=== PATIENT | male | born 1960 | race Caucasian/White ===

== ENCOUNTER 2016-07-12 20:20 | Day surgery (SDC) | payer OTHER ==
[~2016-07-12] VITALS: Ht 172.7 cm; Wt 102.1 kg
[~2016-07-12 20:20] MED LIST: FLOMAX0.4 MG PO; PERCOCET 5/31 TABLET PO; ZOFRAN4 MG PO
[2016-07-12 20:46] VITALS: BP 142/106
[2016-07-12] MEDS ORDERED: ABILIFY10 MG PO (23:21)
[2016-07-12] MEDS ORDERED: ZOLPIDEM TARTRAT5 MG PO (23:22)
[2016-07-12] MEDS ORDERED: MOTRIN800 MG PO (23:23)
[2016-07-12] MEDS ORDERED: ATORVASTATIN CA10 MG PO (23:23)
[2016-07-12 23:33] LABS: EOSINOPHIL (%) 1.5 % (0-5); EOSINOPHIL COUNT 0.2 K/uL (0-0.3); HEMATOCRIT 39.4 % (38.0-50.0); IMMATURE GRANULOCYTE (%) 0.2 % (0.0-0.7); IMMATURE GRANULOCYTE COUNT 0.2 K/uL; LYMPHOCYTE COUNT 2.1 K/uL (1.0-2.8); MCH 30.4 PG (29.0-34.0); MCV 89.3 FL (86-99); MEAN PLAT.VOLUME 8.7 uM^3 (9.0-12.4); MONOCYTE (%) 9.1 % (3-12); MONOCYTE COUNT 0.9 K/uL (0-0.8); NEUTROPHIL (%) 67.5 % (45-76); NEUTROPHIL COUNT 6.7 K/uL (1.8-6.4); PLATELET COUNT 230 K/uL (156-360); RBC DIS.WIDTH-CV 12.8 % (11.8-14.6); RBC DIS.WIDTH-SD 41.2 % (39-53); RED BLOOD COUNT 4.41 M/uL (4.00-5.50); WHITE BLOOD COUNT 9.9 K/uL (4.1-10.2)
[2016-07-12 23:42] LABS: CHLORIDE 110 mEq/L (99-109); PROTHROMBIN TIME 10.5 (9.2-11.2); PTT 25.4 (25-32); SODIUM 141 mEq/L (136-147)
[2016-07-12 23:45] LABS: GLUCOSE 100 mg/dL (70-99)
[2016-07-12 23:46] LABS: ANION GAP 8 MEQ/L (2-14); TOTAL BILIRUBIN 0.3 mg/dL (0.0-1.0)
[2016-07-12 23:48] LABS: ALKALINE PHOSPHATASE 63 IU/L (3-129); GFR ESTIMATE (CALCULATED) > 59 mL/min/
[2016-07-12 23:49] LABS: UREA NITROGEN (BUN) 18 mg/dL (9-23)
== END 2016-07-13 01:40 | disposition home or self-care (01) ==
LOC: EME 20:20 → SDC 23:56 → EME 23:56 → SDC 07-13 01:40
PROVIDERS: Emergency Medicine
DX: T18.128A Food in esophagus causing other injury, initial encounter (principal); R13.10 Dysphagia, unspecified; K21.9 Gastro-esophageal reflux disease without esophagitis; Z87.19 Personal history of other diseases of the digestive system; Z87.891 Personal history of nicotine dependence
CPT/HCPCS: 70360; 71020; 80053; 85025; 85610; 85730; 88305; 99281; 99285; J0330; J1100; J2250; J2405; J3010; J7030

== ENCOUNTER → 2016-09-08 | Outpatient (CLI) | payer OTHER ==
[~2016-09-08] VITALS: Ht 172.7 cm; Wt 99.8 kg
[~2016-09-08] MED LIST changes: +ABILIFY10 MG PO; +ATORVASTATIN CA10 MG PO; +MOTRIN800 MG PO; +ZOLPIDEM TARTRAT5 MG PO
== END | disposition home or self-care (01) ==
LOC: AMB 08-11 09:00
DX: K20.0 Eosinophilic esophagitis (principal); R13.10 Dysphagia, unspecified; K44.9 Diaphragmatic hernia without obstruction or gangrene; E78.5 Hyperlipidemia, unspecified; Z86.010 Personal history of colon polyps; E66.3 Overweight; Z68.35 Body mass index [BMI] 35.0-35.9, adult; Z82.49 Family history of ischemic heart disease and other diseases of the circulatory system; Z87.891 Personal history of nicotine dependence; Z88.1 Allergy status to other antibiotic agents
CPT/HCPCS: 88305; 88342 TC

== ENCOUNTER 2017-02-17 07:47 | Emergency (ER) | payer OTHER ==
[2017-02-17 08:00] LABS: EOSINOPHIL (%) 6.4 % (0-5); EOSINOPHIL COUNT 0.4 K/uL (0-0.3); HEMATOCRIT 41.2 % (38.0-50.0); IMMATURE GRANULOCYTE (%) 0.5 % (0.0-0.7); INSTRUMENT ABS NEUTROPHIL CT 3.9 K/uL; LYMPHOCYTE COUNT 1.4 K/uL (1.0-2.8); MCH 30.3 PG (29.0-34.0); MCHC 33.7 G/DL (30.0-36.0); MCV 89.8 FL (86-99); MEAN PLAT.VOLUME 8.9 uM^3 (9.0-12.4); MONOCYTE (%) 7.8 % (3-12); MONOCYTE COUNT 0.5 K/uL (0-0.8); NEUTROPHIL COUNT 3.9 K/uL (1.8-6.4); PLATELET COUNT 285 K/uL (156-360); RBC DIS.WIDTH-CV 13.2 % (11.8-14.6); RBC DIS.WIDTH-SD 43.9 % (39-53); RED BLOOD COUNT 4.59 M/uL (4.00-5.50); WHITE BLOOD COUNT 6.3 K/uL (4.1-10.2)
[2017-02-17 08:16] LABS: ADD MIUA? YES; BILIRUBIN NEGATIVE; BLOOD SMALL; COLOR YELLOW ((YELLOW)); GLUCOSE (STRIP) NEGATIVE; KETONES NEGATIVE; LEUKOCYTES NEGATIVE; NITRITE NEGATIVE; PROTEIN (STRIP) 30; UROBILINOGEN 0.2 MG/DL (0.2-1.0)
[2017-02-17 08:23] LABS: AMYLASE 29 IU/L (1-118); ANION GAP 9 MEQ/L (2-14); CHLORIDE 110 MEQ/L (99-109); POTASSIUM 3.8 MEQ/L (3.7-5.4); SAMPLE HEMOLYSIS CHECK 0; SAMPLE ICTERIC CHECK 0; SAMPLE LIPEMIA CHECK 1; SODIUM 142 MEQ/L (136-147)
[2017-02-17 08:26] LABS: AMPHETAMINE NEGATIVE (500 ng/mL); BARBITURATES NEGATIVE (200 ng/mL); BENZODIAZEPINES NEGATIVE (150 ng/mL); COCAINE NEGATIVE (150 ng/mL); INTERNAL CONTROLS VALID? YES; METHADONE NEGATIVE (200 ng/mL); METHAMPHETAMINE NEGATIVE (500 ng/mL); OPIATES (MORPHINE) NEGATIVE (100 ng/mL); OXYCODONE NEGATIVE (100 ng/mL); PHENCYCLIDINE NEGATIVE (25 ng/mL); PROPOXYPHENE NEGATIVE (300 ng/mL); THC CANNABINOIDS NEGATIVE (50 ng/mL); TRICYCLIC ANTIDEPRESSANTS PRESUMPTIVE POSITIVE (300 ng/mL)
[2017-02-17 08:29] LABS: GFR ESTIMATE (CALCULATED) > 59 mL/min/; GLUCOSE 137 mg/dL (70-99); LIPASE 17 U/L (1.0-51.0); SERUM ETHYL ALCOHOL < 10 mg/dL; UREA NITROGEN (BUN) 14 mg/dL (9-23)
[2017-02-17 09:07] LABS: BACTERIA NONE SEEN /HPF; EPITHELIAL CELLS RARE /HPF; MUCUS TRACE /LPF; UCUL ADDED? YES
== END 2017-02-17 09:55 | disposition home or self-care (01) ==
LOC: TRA 07:47
PROVIDERS: Emergency Medicine
DX: S16.1XXA Strain of muscle, fascia and tendon at neck level, initial encounter (principal); V49.9XXA Car occupant (driver) (passenger) injured in unspecified traffic accident, initial encounter; Y92.410 Unspecified street and highway as the place of occurrence of the external cause; M54.5 Low back pain; M25.561 Pain in right knee; R51 Headache; R10.31 Right lower quadrant pain; R56.9 Unspecified convulsions; I10 Essential (primary) hypertension; E78.00 Pure hypercholesterolemia, unspecified; F32.9 Major depressive disorder, single episode, unspecified
CPT/HCPCS: 70450; 71260; 72125; 72129; 72132; 74177; 80048; 81003; 82150; 83690; 85025; 86850; 86900; 86901; 87086; 90832; 99281; 99284; G0480

== ENCOUNTER 2017-02-27 14:15 | Inpatient (IN) | payer OTHER ==
[~2017-02-27] VITALS: Ht 172.7 cm; Wt 104.6 kg
[2017-02-27 15:25] LABS: BASOPHIL COUNT 0.1 K/uL (0-0.1); EOSINOPHIL (%) 1.5 % (0-5); EOSINOPHIL COUNT 0.2 K/uL (0-0.3); HEMATOCRIT 40.6 % (38.0-50.0); IMMATURE GRANULOCYTE (%) 0.4 % (0.0-0.7); IMMATURE GRANULOCYTE COUNT 0.1 K/uL; INSTRUMENT ABS NEUTROPHIL CT 9.7 K/uL; LYMPHOCYTE COUNT 1.3 K/uL (1.0-2.8); MCH 30.6 PG (29.0-34.0); MCHC 34.5 G/DL (30.0-36.0); MCV 88.6 FL (86-99); MEAN PLAT.VOLUME 9.2 uM^3 (9.0-12.4); MONOCYTE (%) 5.4 % (3-12); MONOCYTE COUNT 0.6 K/uL (0-0.8); NEUTROPHIL (%) 81.1 % (45-76); NEUTROPHIL COUNT 9.7 K/uL (1.8-6.4); PLATELET COUNT 299 K/uL (156-360); RBC DIS.WIDTH-CV 13.2 % (11.8-14.6); RED BLOOD COUNT 4.58 M/uL (4.00-5.50)
[2017-02-27 15:35] LABS: AMYLASE 49 IU/L (1-118); CHLORIDE 109 mEq/L (99-109); POTASSIUM 3.7 mEq/L (3.7-5.4); SODIUM 141 mEq/L (136-147)
[2017-02-27 15:37] LABS: GLUCOSE 102 mg/dL (70-99)
[2017-02-27 15:38] LABS: ANION GAP 11 MEQ/L (2-14)
[2017-02-27 15:40] LABS: GFR ESTIMATE (CALCULATED) > 59 mL/min/; SERUM ETHYL ALCOHOL < 10 mg/dL
[2017-02-27 15:41] LABS: UREA NITROGEN (BUN) 17 mg/dL (9-23)
[2017-02-27 15:43] LABS: LIPASE 23 U/L (1.0-51.0)
[2017-02-27 16:30] LABS: ADD MIUA? YES; BILIRUBIN NEGATIVE; BLOOD SMALL; COLOR YELLOW ((YELLOW)); GLUCOSE (STRIP) NEGATIVE; KETONES NEGATIVE; LEUKOCYTES SMALL; NITRITE NEGATIVE; PROTEIN (STRIP) 30; UROBILINOGEN 0.2 MG/DL (0.2-1.0)
[2017-02-27 16:32] LABS: AMPHETAMINE NEGATIVE (500 ng/mL); BARBITURATES NEGATIVE (200 ng/mL); BENZODIAZEPINES NEGATIVE (150 ng/mL); COCAINE NEGATIVE (150 ng/mL); INTERNAL CONTROLS VALID? YES; METHADONE NEGATIVE (200 ng/mL); METHAMPHETAMINE NEGATIVE (500 ng/mL); OPIATES (MORPHINE) PRESUMPTIVE POSITIVE (100 ng/mL); OXYCODONE NEGATIVE (100 ng/mL); PHENCYCLIDINE NEGATIVE (25 ng/mL); PROPOXYPHENE NEGATIVE (300 ng/mL); THC CANNABINOIDS NEGATIVE (50 ng/mL); TRICYCLIC ANTIDEPRESSANTS NEGATIVE (300 ng/mL)
[2017-02-27 16:33] LABS: ADD MEDTOX COMMENT Y
[2017-02-27 16:36] LABS: BACTERIA NONE SEEN /HPF; CALCIUM OXALATE CRYSTALS 3+ /HPF; EPITHELIAL CELLS RARE /HPF; MUCUS 1+ /LPF; UCUL ADDED? YES
[2017-02-27 17:28] LABS: SPECIFIC GRAVITY 1.056 (1.000-1.030)
[2017-02-27] MEDS ORDERED: ROSUVASTATIN CAL5 MG PO (19:14)
[2017-02-27] MEDS ORDERED: CARTIA XT180 MG PO (19:14)
[2017-02-27] MEDS ORDERED: HYDROCHLOROTH12.5 M3 PO (19:14)
[2017-02-27] MEDS ORDERED: ZOLPIDEM TARTRA10 MG PO (19:15)
[2017-02-27 22:36] VITALS: BP 165/88
[2017-02-28 02:52] VITALS: BP 132/70
[2017-02-28 07:53] VITALS: BP 137/82
[2017-02-28 09:41] LABS: HEMATOCRIT 36.6 % (38.0-50.0); MCH 31.8 PG (29.0-34.0); MEAN PLAT.VOLUME 9.1 uM^3 (9.0-12.4); PLATELET COUNT 249 K/uL (156-360); RBC DIS.WIDTH-CV 13.4 % (11.8-14.6); RBC DIS.WIDTH-SD 45.2 % (39-53); RED BLOOD COUNT 4.02 M/uL (4.00-5.50)
[2017-02-28 09:59] LABS: ANION GAP 9 MEQ/L (2-14); CHLORIDE 109 MEQ/L (99-109); POTASSIUM 3.9 MEQ/L (3.7-5.4); SAMPLE HEMOLYSIS CHECK 0; SAMPLE ICTERIC CHECK 0; SAMPLE LIPEMIA CHECK 0; SODIUM 142 MEQ/L (136-147)
[2017-02-28 10:05] LABS: GFR ESTIMATE (CALCULATED) > 59 mL/min/; GLUCOSE 97 mg/dL (70-99); UREA NITROGEN (BUN) 11 mg/dL (9-23)
[2017-02-28 12:24] VITALS: BP 166/79
[2017-02-28 15:38] VITALS: BP 141/79
[2017-02-28 20:06] VITALS: BP 133/63
[2017-02-28 23:46] VITALS: BP 141/86
[2017-03-01 03:49] VITALS: BP 138/65
[2017-03-01 05:13] LABS: HEMATOCRIT 36.1 % (38.0-50.0); MCH 29.9 PG (29.0-34.0); MCHC 33.2 G/DL (30.0-36.0); PLATELET COUNT 243 K/uL (156-360); RBC DIS.WIDTH-CV 12.9 % (11.8-14.6); RBC DIS.WIDTH-SD 42.9 % (39-53); RED BLOOD COUNT 4.01 M/uL (4.00-5.50); WHITE BLOOD COUNT 6.9 K/uL (4.1-10.2)
[2017-03-01 05:43] LABS: ANION GAP 8 MEQ/L (2-14); CHLORIDE 106 MEQ/L (99-109); GFR ESTIMATE (CALCULATED) > 59 mL/min/; GLUCOSE 112 mg/dL (70-99); POTASSIUM 3.7 MEQ/L (3.7-5.4); SAMPLE HEMOLYSIS CHECK 0; SAMPLE ICTERIC CHECK 0; SAMPLE LIPEMIA CHECK 0; SODIUM 140 MEQ/L (136-147); UREA NITROGEN (BUN) 8 mg/dL (9-23)
[2017-03-01 07:16] VITALS: BP 138/79
[2017-03-01 07:53] VITALS: BP 146/71
[2017-03-01] MEDS ORDERED: PERCOCET 10/1 TABLET PO (08:57)
== END 2017-03-01 09:50 | disposition home or self-care (01) | DRG 562 ==
LOC: TRA 14:15 → EME 14:15 → EDOF 18:41 → 4EAST 18:41 → ENRESERV 18:42 → 4EAST 22:24
PROVIDERS: Emergency Medicine; Physician Assistant Surgical
DX: S43.101A Unspecified dislocation of right acromioclavicular joint, initial encounter (principal); S01.91XA Laceration without foreign body of unspecified part of head, initial encounter; W31.89XA Contact with other specified machinery, initial encounter; S25.311A Minor laceration of right innominate or subclavian vein, initial encounter; I10 Essential (primary) hypertension; E78.5 Hyperlipidemia, unspecified; K21.9 Gastro-esophageal reflux disease without esophagitis; S20.319A Abrasion of unspecified front wall of thorax, initial encounter; Z87.442 Personal history of urinary calculi; Z87.891 Personal history of nicotine dependence; E66.9 Obesity, unspecified; Z68.35 Body mass index [BMI] 35.0-35.9, adult
CPT/HCPCS: 70450; 71010; 71260; 72170; 73030; 73221; 74177; 80048; 81003; 82150; 83690; 84999; 85025; 85027; 86850; 86900; 86901; 87086; 99281; 99285; G0480; J1170; J2270; J2405; J7040; J7120